=== PATIENT | female | born 1980 | race Caucasian/White ===

== ENCOUNTER 2017-07-20 11:41 | Inpatient (IN) | payer BC ==
[~2017-07-20] VITALS: Ht 157.5 cm; Wt 77.3 kg
[2017-07-23] MEDS ORDERED: OXYTOCIN 30U/ 0.9% NaCL 500ML 500 ML IV ONE (22:01)
[2017-07-23] MEDS ORDERED: LACTATED RINGERS 1,000 ML IV SCH ×2 (22:01→22:09)
[2017-07-23] MEDS ORDERED: D5%-LACTATED RINGERS 1,000 ML IV SCH (22:01)
[2017-07-23] MEDS ORDERED: MISOPROSTOL 200 MCG TABLET ONE (22:06)
[2017-07-23] MEDS ORDERED: LIDOCAINE 1%, 20ML ONE (22:06)
[2017-07-23] MEDS ORDERED: OXYTOCIN 30U/ 0.9% NaCL 500ML 500 ML ONE (22:06)
[2017-07-23] MEDS ORDERED: NEWBORN KIT ONE (22:06)
[2017-07-23] MEDS ORDERED: FENTANYL/BUPIV./NS/PF 250 ML EPIDCONT SCH (22:09)
[2017-07-23] MEDS ORDERED: FENTANYL PF 100 MCG/2ML ONE (22:09)
[2017-07-23 22:20] LABS: BASOPHILS # (AUTO) 0.06 x10^3/uL (0-0.1); BASOPHILS % (AUTO) 1 % (0-1); EOSINOPHILS # (AUTO) 0.15 x10^3/uL (0-0.4); EOSINOPHILS % (AUTO) 2 % (1-7); LYMPHOCYTES # (AUTO) 2.11 x10^3/uL (1-3.4); LYMPHOCYTES % (AUTO) 20 % (22-44); MD NO; MEAN CORPUSCULAR HEMOGLOBIN 29.1 pg (27.0-34.8); MEAN CORPUSCULAR HGB CONC 33.5 g/dL (32.4-35.8); MEAN CORPUSCULAR VOLUME 86.8 fL (80-100); MEAN PLATELET VOLUME 8.1 fL (7.4-10.4); MONOCYTES # (AUTO) 0.65 x10^3/uL (0.2-0.8); MONOCYTES % (AUTO) 6 % (2-9); NEUTROPHILS # (AUTO) 7.68 x10^3/uL (1.8-6.8); NEUTROPHILS % (AUTO) 72 % (42-75); PLATELET COUNT 200 x10^3/uL (130-400); RED BLOOD COUNT 4.27 x10^6/uL (3.82-5.3); RED CELL DISTRIBUTION WIDTH 13.8 % (9.6-15.2)
[2017-07-23] MEDS ORDERED: FENTANYL/BUPIV./NS/PF 250 ML EPIDCONT ONE (22:24)
[2017-07-23] MEDS ORDERED: BUPIVACAINE/PF 0.25% ONE (22:24)
[2017-07-23] MEDS ORDERED: FENTANYL PF 100 MCG/2ML IV PRN (22:30)
[2017-07-23] MEDS ORDERED: ONDANSETRON 2MG/ML, 2ML IVPush PRN (22:30)
[2017-07-23] MEDS ORDERED: EPHEDRINE 50 MG/ML, 1ML IVPush PRN (22:30)
[2017-07-23] MEDS ORDERED: CALCIUM CARBONATE 500 MG TAB.CHEW PO PRN (22:30)
[2017-07-23] MEDS ORDERED: LACTATED RINGERS 1,000 ML IVBOLUS PRN (22:30)
[2017-07-23] MEDS ORDERED: NALOXONE 0.4 MG/ML, 1ML IVPush PRN (22:30)
[2017-07-23] MEDS ORDERED: FENTANYL PF 100 MCG/2ML IVPush PRN (22:30)
[2017-07-23] MEDS ORDERED: PLEASE ENTER HEIGHT AND WEIGHT MC SCH (22:30)
[2017-07-23 23:19] VITALS: BP 116/72
[2017-07-24] MEDS: OXYTOCIN 30U/ 0.9% NaCL 500ML 500 ML IV SCH ×3 (01:23→20:48)
[2017-07-24] MEDS ORDERED: CARBOPROST TROMETHAMINE 250 MCG/ML, 1ML IM PRN (01:30)
[2017-07-24] MEDS ORDERED: MISOPROSTOL 200 MCG TABLET PR PRN (01:30)
[2017-07-24] MEDS ORDERED: ACETAMINOPHEN 325 MG TABLET PO PRN (01:30)
[2017-07-24] MEDS ORDERED: DIPH,PERTUSS(ACELL),TET VAC/PF NC IM-VACC PRN (01:30)
[2017-07-24] MEDS ORDERED: MEASLES,MUMPS&RUBELLA VACC/PF 0.5 ML SQ PRN (01:30)
[2017-07-24] MEDS ORDERED: OXYcodone/APAP 5/325MG TABLET PO PRN (01:30)
[2017-07-24] MEDS ORDERED: METHYLERGONOVINE 0.2 MG/ML IM PRN (01:30)
[2017-07-24 03:20] VITALS: BP 126/73
[2017-07-24] MEDS: IBUPROFEN 600 MG TABLET PO PRN ×4 (03:46→23:46)
[2017-07-24 07:38] VITALS: BP 117/72
[2017-07-24] MEDS: PRENATAL VIT/IRON/FA 1 EACH TABLET PO SCH (08:07)
[2017-07-24] MEDS: DOCUSATE 100 MG CAPSULE PO PRN ×2 (08:07→23:46)
[2017-07-24 10:21] LABS: BASOPHILS # (AUTO) 0.07 x10^3/uL (0-0.1); BASOPHILS % (AUTO) 1 % (0-1); EOSINOPHILS # (AUTO) 0.03 x10^3/uL (0-0.4); EOSINOPHILS % (AUTO) 0 % (1-7); LYMPHOCYTES % (AUTO) 11 % (22-44); MD NO; MEAN CORPUSCULAR HEMOGLOBIN 29.3 pg (27.0-34.8); MEAN CORPUSCULAR HGB CONC 33.5 g/dL (32.4-35.8); MEAN CORPUSCULAR VOLUME 87.6 fL (80-100); MONOCYTES % (AUTO) 6 % (2-9); NEUTROPHILS % (AUTO) 82 % (42-75); PLATELET COUNT 182 x10^3/uL (130-400)
[2017-07-24 12:11] VITALS: BP 108/68
[2017-07-24 19:30] VITALS: BP 113/66
[2017-07-24] MEDS: OXYcodone/APAP 5/325MG TABLET PO PRN ×2 (19:30→23:46)
[2017-07-24 23:50] VITALS: BP 110/63
[2017-07-25] MEDS: IBUPROFEN 600 MG TABLET PO PRN (05:53)
[2017-07-25] MEDS: OXYTOCIN 30U/ 0.9% NaCL 500ML 500 ML IV SCH (07:23)
[2017-07-25 08:30] VITALS: BP 111/68
[2017-07-25] MEDS: PRENATAL VIT/IRON/FA 1 EACH TABLET PO SCH (08:31)
[2017-07-25] MEDS ORDERED: PREN-3 PO (10:27)
[2017-07-25] MEDS ORDERED: DOCU-131 PO (10:27)
[2017-07-25] MEDS ORDERED: IBUP-1222 PO ×2 (10:30→10:32)
[2017-07-25] MEDS ORDERED: OXYC-302 PO (10:31)
== END 2017-07-25 12:15 | disposition home or self-care (01) | DRG 775 ==
LOC: LDIP 07-23 21:57 → 2NW 07-24 03:21
PROVIDERS: ADMIT Obstetrics & Gynecology; ATTEND Obstetrics & Gynecology
PROC: 10E0XZZ Delivery of Products of Conception, External Approach (ICD-10-PCS; principal; 2017-07-25)
DX: O80 Encounter for full-term uncomplicated delivery (principal); Z37.0 Single live birth; Z3A.40 40 weeks gestation of pregnancy
CPT/HCPCS: 36415; 85025; 86850; 86900; J3010; J3490; J7120